=== PATIENT | male | born 1950 | race Caucasian/White ===

== ENCOUNTER 2020-12-08 02:32 | Outpatient (CLI) | payer MEDICARE, SELFPAY ==
[2020-12-08 09:03] LABS: Abs Immature Grans 0.02 10^3/uL (0.0-0.06); Absolute Basophil Count 0.05 10^3/uL (0.0-0.2); Absolute Eosinophil Count 0.11 10^3/uL (0.0-0.7); Absolute Lymphocyte Count 0.58 10^3/uL (1.2-3.4); Absolute Monocyte Count 0.81 10^3/uL (0.1-0.8); Basophils % 0.7; Eosinophils % 1.6; HCT 44.9 % (40.0-50.0); HGB 14.6 g/dL (13.5-17.5); Immature Grans % 0.3; Lymphocytes % 8.7; MCH 30.4 pg (27.0-33.0); MCHC 32.5 % (32.0-36.0); MCV 93.5 fL (80-95); MPV 8.8 fL (8.0-11.0); Monocytes % 12.1; Neutrophils % 76.6; Nucleated RBC 0 %; Platelet Count 244 10^3/uL (130-400); RDW 13.1 % (11.8-14.1); WBC 6.67 10^3/uL (4.4-10.8)
[2020-12-08 09:26] LABS: ALT 24 U/L (16-63); AST 18 U/L (15-37); Albumin 3.9 g/dL (3.4-5.0); Alkaline Phosphatase 88 U/L (46-116); Anion Gap 3.5 mmol/L (3-11); BUN 14 mg/dL (7-18); Bilirubin, Total 0.7 mg/dL (0.2-1.0); CO2 35.5 mmol/L (21.0-32.0); CREATININE 0.9 mg/dL (0.70-1.30); Calcium 9.6 mg/dL (8.5-10.1); Chloride 106 mmol/L (98-107); FREE T4 0.84 ng/dL (0.76-1.46); Glucose 96 mg/dL (74-106); Potassium 4.9 mmol/L (3.5-5.1); Sodium 145 mmol/L (136-145); TSH 1.41 uIU/mL (0.36-3.74); Total Protein 7.6 g/dL (6.4-8.2)
== END 2020-12-08 02:33 | disposition home or self-care (01) ==
LOC: LBO 02:32
PROVIDERS: PCP Family Medicine; Visit Provider Internal Medicine Hematology & Oncology
DX: C01 Malignant neoplasm of base of tongue (principal); Z79.899 Other long term (current) drug therapy
CPT/HCPCS: 36415; 80053; 84439; 84443; 85025

== ENCOUNTER 2020-12-29 02:12 | Outpatient (CLI) | payer MEDICARE, SELFPAY ==
[2020-12-29 08:33] LABS: Abs Immature Grans 0.06 10^3/uL (0.0-0.06); Absolute Basophil Count 0.09 10^3/uL (0.0-0.2); Absolute Eosinophil Count 0.01 10^3/uL (0.0-0.7); Absolute Lymphocyte Count 0.61 10^3/uL (1.2-3.4); Absolute Monocyte Count 0.77 10^3/uL (0.1-0.8); Absolute Neutrophil Count 5.59 10^3/uL (1.2-6.7); Basophils % 1.3; Eosinophils % 0.1; HCT 43.4 % (40.0-50.0); Immature Grans % 0.8; Lymphocytes % 8.6; MCH 29.9 pg (27.0-33.0); MCHC 32.3 % (32.0-36.0); MCV 92.5 fL (80-95); MPV 8.6 fL (8.0-11.0); Monocytes % 10.8; Neutrophils % 78.4; Nucleated RBC 0 %; Platelet Count 273 10^3/uL (130-400); RBC 4.69 10^6/uL (4.36-5.78); RDW 13.1 % (11.8-14.1); RDW-SD 44.2 fL; WBC 7.13 10^3/uL (4.4-10.8)
[2020-12-29 08:57] LABS: ALT 23 U/L (16-63); AST 17 U/L (15-37); Albumin 3.5 g/dL (3.4-5.0); Alkaline Phosphatase 75 U/L (46-116); BUN 14 mg/dL (7-18); Bilirubin, Total 0.6 mg/dL (0.2-1.0); CREATININE 0.8 mg/dL (0.70-1.30); Chloride 107 mmol/L (98-107); FREE T4 0.84 ng/dL (0.76-1.46); Glucose 84 mg/dL (74-106); Potassium 4.5 mmol/L (3.5-5.1); Sodium 145 mmol/L (136-145); TSH 1.29 uIU/mL (0.36-3.74); Total Protein 7.3 g/dL (6.4-8.2)
== END 2020-12-29 02:13 | disposition home or self-care (01) ==
LOC: LBO 02:13
PROVIDERS: PCP Family Medicine; Visit Provider Internal Medicine Hematology & Oncology
DX: C01 Malignant neoplasm of base of tongue (principal); Z79.899 Other long term (current) drug therapy
CPT/HCPCS: 36415; 80053; 84439; 84443; 85025

== ENCOUNTER 2021-01-19 03:06 | Outpatient (CLI) | payer MEDICARE, SELFPAY ==
[2021-01-19 09:11] LABS: Abs Immature Grans 0.07 10^3/uL (0.0-0.06); Absolute Basophil Count 0.06 10^3/uL (0.0-0.2); Absolute Eosinophil Count 0.01 10^3/uL (0.0-0.7); Absolute Lymphocyte Count 0.55 10^3/uL (1.2-3.4); Absolute Monocyte Count 0.68 10^3/uL (0.1-0.8); Absolute Neutrophil Count 4.87 10^3/uL (1.2-6.7); Eosinophils % 0.2; HCT 41.8 % (40.0-50.0); HGB 13.5 g/dL (13.5-17.5); Immature Grans % 1.1; Lymphocytes % 8.8; MCHC 32.3 % (32.0-36.0); MCV 92.9 fL (80-95); MPV 9.2 fL (8.0-11.0); Monocytes % 10.9; Nucleated RBC 0 %; Platelet Count 219 10^3/uL (130-400); RDW 13.6 % (11.8-14.1); RDW-SD 46.5 fL; WBC 6.24 10^3/uL (4.4-10.8)
[2021-01-19 09:25] LABS: ALT 23 U/L (16-63); AST 17 U/L (15-37); Albumin 3.4 g/dL (3.4-5.0); Alkaline Phosphatase 75 U/L (46-116); Anion Gap 3.3 mmol/L (3-11); BUN 12 mg/dL (7-18); Bilirubin, Total 0.5 mg/dL (0.2-1.0); CO2 33.7 mmol/L (21.0-32.0); CREATININE 0.8 mg/dL (0.70-1.30); Calcium 8.9 mg/dL (8.5-10.1); Chloride 106 mmol/L (98-107); Glucose 91 mg/dL (74-106); Potassium 4.6 mmol/L (3.5-5.1); Sodium 143 mmol/L (136-145); TSH 1.52 uIU/mL (0.36-3.74); Total Protein 7.1 g/dL (6.4-8.2)
== END 2021-01-19 03:07 | disposition home or self-care (01) ==
PROVIDERS: PCP Family Medicine; Visit Provider Internal Medicine Hematology & Oncology
DX: C01 Malignant neoplasm of base of tongue (principal); Z79.899 Other long term (current) drug therapy
CPT/HCPCS: 36415; 80053; 84439; 84443; 85025

== ENCOUNTER 2021-02-02 03:51 | Outpatient (CLI) | payer MEDICARE, SELFPAY ==
[2021-02-02 08:50] LABS: Absolute Basophil Count 0.03 10^3/uL (0.0-0.2); HGB 12.1 g/dL (13.5-17.5); MCH 29.4 pg (27.0-33.0); MCHC 31.8 % (32.0-36.0); MCV 92.5 fL (80-95); MPV 8.5 fL (8.0-11.0); Nucleated RBC 0 %; Platelet Count 165 10^3/uL (130-400); RBC 4.11 10^6/uL (4.36-5.78); RDW 14.2 % (11.8-14.1); RDW-SD 46.5 fL
[2021-02-02 09:12] LABS: ALT 22 U/L (16-63); AST 18 U/L (15-37); Albumin 3.3 g/dL (3.4-5.0); Alkaline Phosphatase 75 U/L (46-116); Anion Gap 5.2 mmol/L (3-11); BUN 10 mg/dL (7-18); Bilirubin, Total 0.5 mg/dL (0.2-1.0); CO2 31.8 mmol/L (21.0-32.0); CREATININE 0.9 mg/dL (0.70-1.30); Calcium 8.9 mg/dL (8.5-10.1); Chloride 106 mmol/L (98-107); FREE T4 0.81 ng/dL (0.76-1.46); Glucose 111 mg/dL (74-106); Potassium 4.3 mmol/L (3.5-5.1); Sodium 143 mmol/L (136-145); Total Protein 6.6 g/dL (6.4-8.2)
[2021-02-02 09:15] LABS: Absolute Lymphocyte Count 0.46 10^3/uL (1.2-3.4); Absolute Monocyte Count 0.49 10^3/uL (0.1-0.8); Absolute Neutrophil Count 0.53 10^3/uL (1.2-6.7); Atypical Lymphocytes % 2; Bands % 3; Diff Comment Manual Differential; Metamyelocytes % 1; RBC Morphology Normal
[2021-02-02 09:21] LABS: WBC 1.52 10^3/uL (4.4-10.8)
== END 2021-02-02 03:52 | disposition home or self-care (01) ==
PROVIDERS: PCP Family Medicine; Visit Provider Internal Medicine Hematology & Oncology
DX: C01 Malignant neoplasm of base of tongue (principal); Z79.899 Other long term (current) drug therapy
CPT/HCPCS: 36415; 80053; 84439; 84443; 85025

== ENCOUNTER 2021-03-02 02:03 | Outpatient (CLI) | payer MEDICARE, SELFPAY ==
[2021-03-02 08:45] LABS: Abs Immature Grans 0.03 10^3/uL (0.0-0.06); Absolute Basophil Count 0.04 10^3/uL (0.0-0.2); Absolute Eosinophil Count 0.03 10^3/uL (0.0-0.7); Absolute Lymphocyte Count 0.46 10^3/uL (1.2-3.4); Absolute Monocyte Count 0.79 10^3/uL (0.1-0.8); Absolute Neutrophil Count 3.97 10^3/uL (1.2-6.7); Basophils % 0.8; Eosinophils % 0.6; HCT 39.4 % (40.0-50.0); HGB 12.5 g/dL (13.5-17.5); Immature Grans % 0.6; Lymphocytes % 8.6; MCH 30.3 pg (27.0-33.0); MCHC 31.7 % (32.0-36.0); MCV 95.4 fL (80-95); MPV 8.4 fL (8.0-11.0); Monocytes % 14.8; Neutrophils % 74.6; Nucleated RBC 0 %; Platelet Count 200 10^3/uL (130-400); RBC 4.13 10^6/uL (4.36-5.78); RDW-SD 56.7 fL; WBC 5.32 10^3/uL (4.4-10.8)
[2021-03-02 09:08] LABS: ALT 18 U/L (16-63); AST 16 U/L (15-37); Albumin 3.2 g/dL (3.4-5.0); Alkaline Phosphatase 72 U/L (46-116); Anion Gap 4.5 mmol/L (3-11); BUN 10 mg/dL (7-18); Bilirubin, Total 0.5 mg/dL (0.2-1.0); CO2 31.5 mmol/L (21.0-32.0); CREATININE 0.8 mg/dL (0.70-1.30); Calcium 8.7 mg/dL (8.5-10.1); Chloride 107 mmol/L (98-107); FREE T4 0.82 ng/dL (0.76-1.46); Glucose 95 mg/dL (74-106); Potassium 4.5 mmol/L (3.5-5.1); Sodium 143 mmol/L (136-145); TSH 1.55 uIU/mL (0.36-3.74); Total Protein 6.4 g/dL (6.4-8.2)
== END 2021-03-02 02:04 | disposition home or self-care (01) ==
PROVIDERS: PCP Family Medicine; Visit Provider Internal Medicine Hematology & Oncology
DX: C01 Malignant neoplasm of base of tongue (principal); Z79.899 Other long term (current) drug therapy
CPT/HCPCS: 36415; 80053; 84439; 84443; 85025

== ENCOUNTER 2021-03-23 03:02 | Outpatient (CLI) | payer MEDICARE, SELFPAY ==
[2021-03-23 08:48] LABS: Abs Immature Grans 0.03 10^3/uL (0.0-0.06); Absolute Basophil Count 0.05 10^3/uL (0.0-0.2); Absolute Lymphocyte Count 0.46 10^3/uL (1.2-3.4); Absolute Monocyte Count 0.66 10^3/uL (0.1-0.8); Basophils % 1.1; HCT 39.2 % (40.0-50.0); Immature Grans % 0.7; Lymphocytes % 10.2; MCH 29.7 pg (27.0-33.0); MCHC 30.6 % (32.0-36.0); MPV 8.4 fL (8.0-11.0); Monocytes % 14.7; Neutrophils % 73.3; Nucleated RBC 0 %; Platelet Count 185 10^3/uL (130-400); RBC 4.04 10^6/uL (4.36-5.78); RDW 16.1 % (11.8-14.1); RDW-SD 57.6 fL
[2021-03-23 09:14] LABS: ALT 15 U/L (16-63); AST 15 U/L (15-37); Albumin 3.1 g/dL (3.4-5.0); Alkaline Phosphatase 64 U/L (46-116); BUN 9 mg/dL (7-18); Bilirubin, Total 0.4 mg/dL (0.2-1.0); CREATININE 0.8 mg/dL (0.70-1.30); Calcium 8.6 mg/dL (8.5-10.1); Chloride 108 mmol/L (98-107); FREE T4 0.78 ng/dL (0.76-1.46); Glucose 101 mg/dL (74-106); Potassium 4.7 mmol/L (3.5-5.1); Sodium 143 mmol/L (136-145); TSH 2.27 uIU/mL (0.36-3.74); Total Protein 6.2 g/dL (6.4-8.2)
== END 2021-03-23 03:03 | disposition home or self-care (01) ==
PROVIDERS: Internal Medicine Hematology & Oncology; PCP Family Medicine; Visit Provider Internal Medicine Hematology & Oncology
DX: C01 Malignant neoplasm of base of tongue (principal); Z79.899 Other long term (current) drug therapy
CPT/HCPCS: 36415; 80053; 83735; 84439; 84443; 85025

== ENCOUNTER 2021-05-11 04:01 | Outpatient (CLI) | payer MEDICARE, SELFPAY ==
[2021-05-11 08:06] LABS: Abs Immature Grans 0.01 10^3/uL (0.0-0.06); Absolute Basophil Count 0.04 10^3/uL (0.0-0.2); Absolute Eosinophil Count 0.17 10^3/uL (0.0-0.7); Absolute Lymphocyte Count 0.46 10^3/uL (1.2-3.4); Absolute Monocyte Count 0.64 10^3/uL (0.1-0.8); Absolute Neutrophil Count 3.13 10^3/uL (1.2-6.7); Basophils % 0.9; Eosinophils % 3.8; HCT 42.4 % (40.0-50.0); HGB 13.4 g/dL (13.5-17.5); Immature Grans % 0.2; Lymphocytes % 10.3; MCHC 31.6 % (32.0-36.0); MCV 94.9 fL (80-95); MPV 8.8 fL (8.0-11.0); Monocytes % 14.4; Neutrophils % 70.4; Nucleated RBC 0 %; Platelet Count 194 10^3/uL (130-400); RBC 4.47 10^6/uL (4.36-5.78); RDW 14.8 % (11.8-14.1); RDW-SD 51.9 fL; WBC 4.45 10^3/uL (4.4-10.8)
[2021-05-11 08:33] LABS: ALT 19 U/L (16-63); AST 15 U/L (15-37); Albumin 3.4 g/dL (3.4-5.0); Alkaline Phosphatase 91 U/L (46-116); Anion Gap 2.4 mmol/L (3-11); BUN 11 mg/dL (7-18); Bilirubin, Total 0.5 mg/dL (0.2-1.0); CO2 35.6 mmol/L (21.0-32.0); CREATININE 0.7 mg/dL (0.70-1.30); Calcium 9.1 mg/dL (8.5-10.1); Chloride 105 mmol/L (98-107); FREE T4 0.84 ng/dL (0.76-1.46); Glucose 79 mg/dL (74-106); Potassium 4.4 mmol/L (3.5-5.1); Sodium 143 mmol/L (136-145); TSH 2.17 uIU/mL (0.36-3.74); Total Protein 7.1 g/dL (6.4-8.2)
== END 2021-05-11 04:02 | disposition home or self-care (01) ==
LOC: LBO 04:01
PROVIDERS: PCP Family Medicine; Visit Provider Internal Medicine Hematology & Oncology
DX: C01 Malignant neoplasm of base of tongue (principal); Z79.899 Other long term (current) drug therapy
CPT/HCPCS: 36415; 80053; 84439; 84443; 85025

== ENCOUNTER 2021-06-01 02:38 | Outpatient (CLI) | payer MEDICARE, SELFPAY ==
[2021-06-01 12:30] LABS: Abs Immature Grans 0.01 10^3/uL (0.0-0.06); Absolute Basophil Count 0.05 10^3/uL (0.0-0.2); Absolute Eosinophil Count 0.22 10^3/uL (0.0-0.7); Absolute Lymphocyte Count 0.64 10^3/uL (1.2-3.4); Absolute Monocyte Count 0.86 10^3/uL (0.1-0.8); Basophils % 0.8; Eosinophils % 3.4; HCT 44.4 % (40.0-50.0); HGB 13.9 g/dL (13.5-17.5); Immature Grans % 0.2; MCH 29.3 pg (27.0-33.0); MCHC 31.3 % (32.0-36.0); MCV 93.7 fL (80-95); MPV 8.6 fL (8.0-11.0); Monocytes % 13.5; Neutrophils % 72.1; Nucleated RBC 0 %; Platelet Count 210 10^3/uL (130-400); RBC 4.74 10^6/uL (4.36-5.78); RDW 14.3 % (11.8-14.1); RDW-SD 49.9 fL; WBC 6.38 10^3/uL (4.4-10.8)
[2021-06-01 12:53] LABS: ALT 15 U/L (16-63); AST 13 U/L (15-37); Albumin 3.7 g/dL (3.4-5.0); Alkaline Phosphatase 84 U/L (46-116); Anion Gap 4.2 mmol/L (3-11); BUN 16 mg/dL (7-18); Bilirubin, Total 0.6 mg/dL (0.2-1.0); CO2 33.8 mmol/L (21.0-32.0); CREATININE 0.6 mg/dL (0.70-1.30); Calcium 9.2 mg/dL (8.5-10.1); Chloride 103 mmol/L (98-107); FREE T4 0.88 ng/dL (0.76-1.46); Glucose 92 mg/dL (74-106); Potassium 4.3 mmol/L (3.5-5.1); Sodium 141 mmol/L (136-145); TSH 2.36 uIU/mL (0.36-3.74); Total Protein 7.5 g/dL (6.4-8.2)
== END 2021-06-01 02:39 | disposition home or self-care (01) ==
LOC: LBO 02:38
PROVIDERS: PCP Family Medicine; Visit Provider Internal Medicine Hematology & Oncology
DX: Z79.899 Other long term (current) drug therapy (principal); C01 Malignant neoplasm of base of tongue
CPT/HCPCS: 36415; 80053; 84439; 84443; 85025

== ENCOUNTER 2021-06-22 02:46 | Outpatient (RCR) | payer MEDICARE, SELFPAY ==
[2021-06-22] MEDS: Normal Saline Flush 10 ML SYR IVP (09:40)
[2021-06-22 09:44] LABS: Abs Immature Grans 0.05 10^3/uL (0.0-0.06); Absolute Basophil Count 0.04 10^3/uL (0.0-0.2); Absolute Eosinophil Count 0.01 10^3/uL (0.0-0.7); Absolute Lymphocyte Count 0.66 10^3/uL (1.2-3.4); Absolute Monocyte Count 0.83 10^3/uL (0.1-0.8); Absolute Neutrophil Count 4.47 10^3/uL (1.2-6.7); Basophils % 0.7; Eosinophils % 0.2; HCT 39.1 % (40.0-50.0); HGB 12.7 g/dL (13.5-17.5); Immature Grans % 0.8; Lymphocytes % 10.9; MCH 29.1 pg (27.0-33.0); MCHC 32.5 % (32.0-36.0); MCV 89.5 fL (80-95); MPV 8.8 fL (8.0-11.0); Monocytes % 13.7; Neutrophils % 73.7; Nucleated RBC 0 %; Platelet Count 243 10^3/uL (130-400); RBC 4.37 10^6/uL (4.36-5.78); RDW 14.8 % (11.8-14.1); WBC 6.06 10^3/uL (4.4-10.8)
[2021-06-22 10:43] LABS: Albumin 3.4 g/dL (3.4-5.0); BUN 15 mg/dL (7-18); CREATININE 0.6 mg/dL (0.70-1.30); Calcium 8.9 mg/dL (8.5-10.1); Glucose 92 mg/dL (74-106); Total Protein 7.2 g/dL (6.4-8.2)
[2021-06-22 10:44] LABS: ALT 22 U/L (16-63); AST 12 U/L (15-37); Alkaline Phosphatase 86 U/L (46-116); Anion Gap 6.4 mmol/L (3-11); Bilirubin, Total 0.4 mg/dL (0.2-1.0); CO2 31.6 mmol/L (21.0-32.0); Chloride 106 mmol/L (98-107); FREE T4 0.88 ng/dL (0.76-1.46); Potassium 4.4 mmol/L (3.5-5.1); Sodium 144 mmol/L (136-145); TSH 1.61 uIU/mL (0.36-3.74)
== END 2021-07-07 23:59 | disposition home or self-care (01) ==
LOC: INF 02:46
PROVIDERS: PCP Family Medicine; Visit Provider Internal Medicine Hematology & Oncology
DX: C01 Malignant neoplasm of base of tongue (principal); Z79.899 Other long term (current) drug therapy; Z45.2 Encounter for adjustment and management of vascular access device
CPT/HCPCS: 36591; 80053; 84439; 84443; 85025

== ENCOUNTER 2021-08-03 08:00 | Outpatient (RCR) | payer MEDICARE, SELFPAY ==
[2021-07-13] MEDS: Normal Saline Flush 10 ML SYR IVP (08:13)
[2021-07-13 08:51] LABS: Abs Immature Grans 0.03 10^3/uL (0.0-0.06); Absolute Basophil Count 0.04 10^3/uL (0.0-0.2); Absolute Eosinophil Count 0.01 10^3/uL (0.0-0.7); Absolute Lymphocyte Count 0.59 10^3/uL (1.2-3.4); Absolute Monocyte Count 0.72 10^3/uL (0.1-0.8); Basophils % 0.7; Eosinophils % 0.2; HCT 39.4 % (40.0-50.0); HGB 12.8 g/dL (13.5-17.5); Immature Grans % 0.5; Lymphocytes % 9.8; MCH 29.2 pg (27.0-33.0); MCHC 32.5 % (32.0-36.0); MCV 89.7 fL (80-95); MPV 8.9 fL (8.0-11.0); Neutrophils % 76.8; Nucleated RBC 0 %; Platelet Count 241 10^3/uL (130-400); RBC 4.39 10^6/uL (4.36-5.78); RDW 15.5 % (11.8-14.1); RDW-SD 50.9 fL; WBC 5.99 10^3/uL (4.4-10.8)
[2021-07-13 09:24] LABS: ALT 15 U/L (16-63); AST 13 U/L (15-37); Albumin 3.3 g/dL (3.4-5.0); Alkaline Phosphatase 83 U/L (46-116); BUN 13 mg/dL (7-18); Bilirubin, Total 0.5 mg/dL (0.2-1.0); CREATININE 0.6 mg/dL (0.70-1.30); Calcium 9.1 mg/dL (8.5-10.1); Chloride 103 mmol/L (98-107); FREE T4 0.95 ng/dL (0.76-1.46); Glucose 159 mg/dL (74-106); Sodium 139 mmol/L (136-145); TSH 2.08 uIU/mL (0.36-3.74); Total Protein 7.2 g/dL (6.4-8.2)
[2021-08-03] MEDS: Normal Saline Flush 10 ML SYR IVP (08:09)
[2021-08-03 08:20] LABS: Abs Immature Grans 0.02 10^3/uL (0.0-0.06); Absolute Basophil Count 0.05 10^3/uL (0.0-0.2); Absolute Lymphocyte Count 0.62 10^3/uL (1.2-3.4); Absolute Monocyte Count 0.71 10^3/uL (0.1-0.8); Absolute Neutrophil Count 3.83 10^3/uL (1.2-6.7); HCT 36.5 % (40.0-50.0); HGB 11.8 g/dL (13.5-17.5); Immature Grans % 0.4; Lymphocytes % 11.9; MCH 29.4 pg (27.0-33.0); MCHC 32.3 % (32.0-36.0); MPV 8.4 fL (8.0-11.0); Monocytes % 13.6; Neutrophils % 73.1; Nucleated RBC 0 %; Platelet Count 180 10^3/uL (130-400); RBC 4.01 10^6/uL (4.36-5.78); RDW 16.6 % (11.8-14.1); RDW-SD 54.9 fL; WBC 5.23 10^3/uL (4.4-10.8)
[2021-08-03 08:55] LABS: ALT 14 U/L (16-63); AST 13 U/L (15-37); Albumin 3.4 g/dL (3.4-5.0); Alkaline Phosphatase 83 U/L (46-116); Anion Gap 6.4 mmol/L (3-11); BUN 13 mg/dL (7-18); Bilirubin, Total 0.5 mg/dL (0.2-1.0); CO2 29.6 mmol/L (21.0-32.0); CREATININE 0.7 mg/dL (0.70-1.30); Calcium 9.1 mg/dL (8.5-10.1); Chloride 101 mmol/L (98-107); FREE T4 0.83 ng/dL (0.76-1.46); Glucose 150 mg/dL (74-106); Potassium 3.9 mmol/L (3.5-5.1); Sodium 137 mmol/L (136-145); TSH 1.77 uIU/mL (0.36-3.74); Total Protein 7.2 g/dL (6.4-8.2)
== END 2021-08-07 23:59 | disposition home or self-care (01) ==
LOC: INF 08:00
PROVIDERS: PCP Family Medicine; Visit Provider Internal Medicine Hematology & Oncology
DX: C01 Malignant neoplasm of base of tongue (principal); Z79.899 Other long term (current) drug therapy; Z45.2 Encounter for adjustment and management of vascular access device
CPT/HCPCS: 36591; 80053; 84439; 84443; 85025

== ENCOUNTER 2021-10-05 01:22 | Outpatient (RCR) | payer MEDICARE, SELFPAY ==
[2021-09-14] MEDS: Normal Saline Flush 10 ML SYR IVP (10:29)
[2021-09-14] MEDS: Heparin 500 UNITS/5 ML SYRINGE IV (10:29)
[2021-09-14 10:46] LABS: Abs Immature Grans 0.03 10^3/uL (0.0-0.06); Absolute Basophil Count 0.02 10^3/uL (0.0-0.2); Absolute Lymphocyte Count 0.34 10^3/uL (1.2-3.4); Absolute Monocyte Count 0.68 10^3/uL (0.1-0.8); Absolute Neutrophil Count 6.04 10^3/uL (1.2-6.7); Basophils % 0.3; Eosinophils % 1.4; HCT 32.7 % (40.0-50.0); HGB 10.6 g/dL (13.5-17.5); Immature Grans % 0.4; Lymphocytes % 4.7; MCH 30.5 pg (27.0-33.0); MCHC 32.4 % (32.0-36.0); MCV 94.2 fL (80-95); MPV 8.8 fL (8.0-11.0); Monocytes % 9.4; Neutrophils % 83.8; Nucleated RBC 0 %; Platelet Count 254 10^3/uL (130-400); RBC 3.47 10^6/uL (4.36-5.78); RDW 15.2 % (11.8-14.1); RDW-SD 52.5 fL; WBC 7.21 10^3/uL (4.4-10.8)
[2021-09-14 11:18] LABS: ALT 14 U/L (16-63); AST 13 U/L (15-37); Albumin 2.9 g/dL (3.4-5.0); Alkaline Phosphatase 77 U/L (46-116); Anion Gap 5.1 mmol/L (3-11); BUN 11 mg/dL (7-18); Bilirubin, Total 0.5 mg/dL (0.2-1.0); CO2 31.9 mmol/L (21.0-32.0); CREATININE 0.6 mg/dL (0.70-1.30); Calcium 8.7 mg/dL (8.5-10.1); Chloride 102 mmol/L (98-107); FREE T4 0.99 ng/dL (0.76-1.46); Glucose 198 mg/dL (74-106); Potassium 3.8 mmol/L (3.5-5.1); Sodium 139 mmol/L (136-145); TSH 1.49 uIU/mL (0.36-3.74); Total Protein 6.9 g/dL (6.4-8.2)
[2021-10-05] MEDS: Heparin 500 UNITS/5 ML SYRINGE IV (12:07)
[2021-10-05] MEDS: Normal Saline Flush 10 ML SYR IVP (12:07)
[2021-10-05 12:24] LABS: Abs Immature Grans 0.02 10^3/uL (0.0-0.06); Absolute Basophil Count 0.04 10^3/uL (0.0-0.2); Absolute Eosinophil Count 0.21 10^3/uL (0.0-0.7); Absolute Lymphocyte Count 0.53 10^3/uL (1.2-3.4); Absolute Monocyte Count 0.88 10^3/uL (0.1-0.8); Absolute Neutrophil Count 5.73 10^3/uL (1.2-6.7); Basophils % 0.5; Eosinophils % 2.8; HCT 33.7 % (40.0-50.0); HGB 10.7 g/dL (13.5-17.5); Immature Grans % 0.3; Lymphocytes % 7.2; MCH 29.8 pg (27.0-33.0); MCHC 31.8 % (32.0-36.0); MCV 93.9 fL (80-95); Monocytes % 11.9; Neutrophils % 77.3; Nucleated RBC 0 %; Platelet Count 287 10^3/uL (130-400); RBC 3.59 10^6/uL (4.36-5.78); RDW 15.9 % (11.8-14.1); RDW-SD 53.9 fL; WBC 7.41 10^3/uL (4.4-10.8)
[2021-10-05 12:40] LABS: ALT 14 U/L (16-63); AST 13 U/L (15-37); Albumin 3.3 g/dL (3.4-5.0); Alkaline Phosphatase 85 U/L (46-116); Anion Gap 5.9 mmol/L (3-11); BUN 17 mg/dL (7-18); Bilirubin, Total 0.5 mg/dL (0.2-1.0); CO2 30.1 mmol/L (21.0-32.0); CREATININE 0.5 mg/dL (0.70-1.30); Calcium 9.2 mg/dL (8.5-10.1); Chloride 102 mmol/L (98-107); Glucose 91 mg/dL (74-106); Potassium 4.2 mmol/L (3.5-5.1); Sodium 138 mmol/L (136-145); Total Protein 7.3 g/dL (6.4-8.2)
== END 2021-10-05 23:59 | disposition home or self-care (01) ==
LOC: INF 01:22
PROVIDERS: PCP Family Medicine; Visit Provider Internal Medicine Hematology & Oncology
DX: C01 Malignant neoplasm of base of tongue (principal); Z79.899 Other long term (current) drug therapy; Z45.2 Encounter for adjustment and management of vascular access device
CPT/HCPCS: 36591; 80053; 84439; 84443; 85025

== ENCOUNTER 2021-10-23 00:59 | Outpatient (RCR) | payer MEDICARE, SELFPAY ==
[2021-10-23 07:41] LABS: Abs Immature Grans 0.03 10^3/uL (0.0-0.06); Absolute Basophil Count 0.04 10^3/uL (0.0-0.2); Absolute Eosinophil Count 0.27 10^3/uL (0.0-0.7); Absolute Lymphocyte Count 0.44 10^3/uL (1.2-3.4); Absolute Monocyte Count 0.63 10^3/uL (0.1-0.8); Absolute Neutrophil Count 5.93 10^3/uL (1.2-6.7); Basophils % 0.5; Eosinophils % 3.7; HCT 32.4 % (40.0-50.0); HGB 10.3 g/dL (13.5-17.5); Immature Grans % 0.4; MCH 29.3 pg (27.0-33.0); MCHC 31.8 % (32.0-36.0); MCV 92.3 fL (80-95); MPV 8.7 fL (8.0-11.0); Monocytes % 8.6; Neutrophils % 80.8; Nucleated RBC 0 %; Platelet Count 274 10^3/uL (130-400); RBC 3.51 10^6/uL (4.36-5.78); RDW 17.6 % (11.8-14.1); RDW-SD 59.1 fL; WBC 7.34 10^3/uL (4.4-10.8)
[2021-10-23] MEDS: Heparin 500 UNITS/5 ML SYRINGE IV (07:48)
[2021-10-23] MEDS: Normal Saline Flush 10 ML SYR IVP (07:48)
[2021-10-23 08:03] LABS: ALT 15 U/L (16-63); AST 13 U/L (15-37); Albumin 2.9 g/dL (3.4-5.0); Alkaline Phosphatase 77 U/L (46-116); Anion Gap 7.9 mmol/L (3-11); BUN 14 mg/dL (7-18); Bilirubin, Total 0.7 mg/dL (0.2-1.0); CO2 30.1 mmol/L (21.0-32.0); CREATININE 0.8 mg/dL (0.70-1.30); Calcium 8.7 mg/dL (8.5-10.1); Chloride 102 mmol/L (98-107); Glucose 135 mg/dL (74-106); Potassium 3.8 mmol/L (3.5-5.1); Sodium 140 mmol/L (136-145); Total Protein 6.8 g/dL (6.4-8.2)
== END 2021-11-05 23:59 | disposition home or self-care (01) ==
LOC: INF 00:59
PROVIDERS: PCP Family Medicine; Visit Provider Internal Medicine Hematology & Oncology
DX: C01 Malignant neoplasm of base of tongue (principal); Z79.899 Other long term (current) drug therapy; Z45.2 Encounter for adjustment and management of vascular access device
CPT/HCPCS: 36591; 80053; 85025

== ENCOUNTER 2021-11-20 00:50 | Outpatient (RCR) | payer MEDICARE, SELFPAY ==
[2021-11-20] MEDS: Normal Saline Flush 10 ML SYR IVP (08:40)
[2021-11-20] MEDS: Heparin 500 UNITS/5 ML SYRINGE IV (08:40)
[2021-11-20 09:00] LABS: Abs Immature Grans 0.06 10^3/uL (0.0-0.06); Absolute Basophil Count 0.04 10^3/uL (0.0-0.2); Absolute Eosinophil Count 0.09 10^3/uL (0.0-0.7); Absolute Lymphocyte Count 0.37 10^3/uL (1.2-3.4); Absolute Monocyte Count 0.76 10^3/uL (0.1-0.8); Basophils % 0.4; Eosinophils % 0.8; HCT 35.1 % (40.0-50.0); Immature Grans % 0.6; Lymphocytes % 3.4; MCH 28.6 pg (27.0-33.0); MCHC 31.3 % (32.0-36.0); MCV 91.2 fL (80-95); MPV 9.2 fL (8.0-11.0); Neutrophils % 87.8; Platelet Count 300 10^3/uL (130-400); RBC 3.85 10^6/uL (4.36-5.78); RDW 17.5 % (11.8-14.1); RDW-SD 58.4 fL; WBC 10.88 10^3/uL (4.4-10.8)
[2021-11-20 09:06] LABS: Absolute Neutrophil Count 9.55 10^3/uL (1.2-6.7)
[2021-11-20 09:14] LABS: ALT 25 U/L (16-63); AST 15 U/L (15-37); Albumin 2.7 g/dL (3.4-5.0); Alkaline Phosphatase 84 U/L (46-116); Anion Gap 5.9 mmol/L (3-11); BUN 14 mg/dL (7-18); Bilirubin, Total 0.6 mg/dL (0.2-1.0); CO2 32.1 mmol/L (21.0-32.0); CREATININE 0.6 mg/dL (0.70-1.30); Calcium 8.4 mg/dL (8.5-10.1); Chloride 103 mmol/L (98-107); Glucose 133 mg/dL (74-106); Magnesium 1.4 mg/dL (1.8-2.4); Potassium 3.3 mmol/L (3.5-5.1); Sodium 141 mmol/L (136-145); Total Protein 6.4 g/dL (6.4-8.2)
== END 2021-12-05 23:59 | disposition home or self-care (01) ==
LOC: INF 00:50
PROVIDERS: PCP Family Medicine; Visit Provider Internal Medicine Hematology & Oncology
DX: C01 Malignant neoplasm of base of tongue (principal); Z45.2 Encounter for adjustment and management of vascular access device
CPT/HCPCS: 36591; 80053; 83735; 85025

== ENCOUNTER 2021-12-14 00:52 | Outpatient (RCR) | payer MEDICARE, SELFPAY ==
[2021-12-07] MEDS: Heparin 500 UNITS/5 ML SYRINGE IV (09:23)
[2021-12-07] MEDS: Normal Saline Flush 10 ML SYR IVP (09:23)
[2021-12-07 09:29] LABS: Abs Immature Grans 0.04 10^3/uL (0.0-0.06); Absolute Basophil Count 0.03 10^3/uL (0.0-0.2); Absolute Eosinophil Count 0.04 10^3/uL (0.0-0.7); Absolute Lymphocyte Count 0.53 10^3/uL (1.2-3.4); Absolute Monocyte Count 0.44 10^3/uL (0.1-0.8); Absolute Neutrophil Count 6.35 10^3/uL (1.2-6.7); Basophils % 0.4; Eosinophils % 0.5; HCT 37.5 % (40.0-50.0); HGB 11.5 g/dL (13.5-17.5); Immature Grans % 0.5; Lymphocytes % 7.1; MCH 27.6 pg (27.0-33.0); MCHC 30.7 % (32.0-36.0); MCV 90 fL (80-95); MPV 9.2 fL (8.0-11.0); Monocytes % 5.9; Neutrophils % 85.6; Platelet Count 279 10^3/uL (130-400); RBC 4.17 10^6/uL (4.36-5.78); RDW 18.1 % (11.8-14.1); RDW-SD 59.9 fL; WBC 7.43 10^3/uL (4.4-10.8)
[2021-12-07 09:41] LABS: ALT 34 U/L (16-63); AST 19 U/L (15-37); Albumin 2.5 g/dL (3.4-5.0); Alkaline Phosphatase 123 U/L (46-116); Anion Gap 4.5 mmol/L (3-11); BUN 16 mg/dL (7-18); Bilirubin, Total 0.5 mg/dL (0.2-1.0); CO2 31.5 mmol/L (21.0-32.0); CREATININE 0.6 mg/dL (0.70-1.30); Calcium 8.5 mg/dL (8.5-10.1); Chloride 103 mmol/L (98-107); Glucose 200 mg/dL (74-106); Magnesium 1.6 mg/dL (1.8-2.4); Potassium 3.8 mmol/L (3.5-5.1); Sodium 139 mmol/L (136-145); Total Protein 6.7 g/dL (6.4-8.2)
== END 2022-01-05 23:59 | disposition home or self-care (01) ==
LOC: INF 00:52
PROVIDERS: PCP Family Medicine; Visit Provider Internal Medicine Hematology & Oncology
DX: C01 Malignant neoplasm of base of tongue (principal); Z45.2 Encounter for adjustment and management of vascular access device
CPT/HCPCS: 36591; 80053; 83735; 85025